=== PATIENT | female | born 1960 | race Caucasian/White ===

== ENCOUNTER 2024-04-08 18:18 | Inpatient (IN) | payer MEDICARE, MEDICAID ==
[~2024-04-08] VITALS: Ht 165.1 cm; Wt 57.1 kg
[~2024-04-08 18:18] MED LIST: BUPR-344 PO; BUSP5TAB20 PO; DIVA-111 PO
[2024-04-08 20:29] LABS: COVID AG,FIA SOURCE NASAL SWAB
[2024-04-08 20:56] LABS: BASOPHILS % (AUTO) 0.5 % (0.0-2.0); EOSINOPHILS % (AUTO) 0 % (1.0-6.0); HEMATOCRIT 47.1 % (36-46); HEMOGLOBIN 15.8 g/dL (12.0-16.0); LYMPHOCYTES # (AUTO) 1.8 K/uL (1.0-4.8); LYMPHOCYTES % (AUTO) 14.4 % (22.0-44.0); MEAN CORPUSCULAR HGB CONC 33.5 G/dL (31.0-37.0); MEAN CORPUSCULAR VOLUME 96 fL (80-100); MONOCYTES # (AUTO) 1.5 K/uL (0.1-1.0); MONOCYTES % (AUTO) 11.9 % (2.0-9.0); NEUTROPHILS # (AUTO) 9.1 K/uL (1.8-7.7); NEUTROPHILS % (AUTO) 73.2 % (40.0-70.0); PLATELET COUNT (AUTO) 310 K/uL (150-450); RED BLOOD CELL COUNT(AUTO) 4.92 MIL/uL (4.00-5.20); RED CELL DISTRIBUTION WIDTH 13.8 % (11.5-14.5); WHITE BLOOD COUNT (AUTO) 12.5 K/uL (4.5-11.0)
[2024-04-08 21:07] LABS: ANION GAP 14 mmol/L (8-16); CALCIUM, TOTAL 9.9 mg/dL (8.8-10.5); CARBON DIOXIDE 26 mmol/L (22-29); CHLORIDE 95 mmol/L (98-107); CREATININE 1.57 mg/dL (0.60-1.30); GLOMERULAR FILTR. RATE CALC 33 mL/min (>60); GLUCOSE,RANDOM 102 mg/dL (70-110); POTASSIUM 3.7 mmol/L (3.5-5.1); SODIUM SERUM 135 mmol/L (136-145); UREA NITROGEN, BLOOD 24 mg/dL (7-18)
[2024-04-08 21:09] LABS: ALCOHOL, BLOOD (SERUM) < 3 mg/dL (0-10)
[2024-04-08 21:14] LABS: SARS-COV2 (COVID) ANTIGEN,FIA Negative (Negative)
[2024-04-08 21:48] LABS: APPEARANCE,URINE TURBID (CLEAR); BILIRUBIN,URINE NEGATIVE (NEGATIVE); COLOR,URINE YELLOW (YELLOW); GLUCOSE, URINE (UA) TRACE mg/dL (NEGATIVE); LEUKOCYTE ESTERASE ,URINE SMALL (NEGATIVE); NITRATE,URINE NEGATIVE (NEGATIVE); OCCULT BLOOD,URINE TRACE (NEGATIVE); PROTEIN,URINE 100-200,SEE CONFIRM mg/dL (NEGATIVE); SPECIFIC GRAVITIY, URINE 1.022 (1.003-1.030)
[2024-04-08 21:54] LABS: ALCOHOL, URINE DRUG SCREEN NEGATIVE (NEGATIVE); AMPHET/METH SCREEN,URINE POSITIVE (NEGATIVE); BARBITURATE SCREEN, URINE NEGATIVE (NEGATIVE); BENZODIAZEPINES SCREEN,URINE NEGATIVE (NEGATIVE); CANNABINOID SCREEN,URINE POSITIVE (NEGATIVE); COCAINE SCREEN,URINE NEGATIVE (NEGATIVE); METHADONE SCREEN, URINE NEGATIVE (NEGATIVE); OPIATE SCREEN,URINE NEGATIVE (NEGATIVE); PHENCYCLIDINE SCREEN,URINE NEGATIVE (NEGATIVE)
[2024-04-08 22:36] LABS: RBC,URINE 0-2 /HPF (0-2)
[2024-04-08 22:37] LABS: BACTERIA,URINE Moderate /HPF (None Seen); SQUAMOUS EPITHELIAL CELL,UR Moderate /LPF (None Seen); SULFOSALICYLIC ACID,URINE Trace (Negative)
[2024-04-09] MEDS: LORazepam 1 MG TABLET PO ONE (01:05)
[2024-04-09] MEDS ORDERED: ZOLPIDEM TARTRATE 10 MG TABLET PO PRN (03:15)
[2024-04-09] MEDS ORDERED: HALOPERIDOL 5 MG TABLET PO PRN (03:15)
[2024-04-09 03:40] VITALS: BP 130/70; PULSE 105; RESP 18; TEMP 97.5; O2SAT 100
[2024-04-09] MEDS ORDERED: CloNIDine HCL 0.1 MG TABLET PO PRN (09:15)
[2024-04-09] MEDS ORDERED: LOPERAMIDE HCL 2 MG CAPSULE PO PRN ×2 (09:15→10:45)
[2024-04-09] MEDS ORDERED: DOCUSATE SODIUM 100 MG CAPSULE PO PRN (09:15)
[2024-04-09] MEDS ORDERED: MAGNESIUM HYDROXIDE SUSPENSION 30 ML UDCUP PO PRN ×2 (09:15→10:45)
[2024-04-09] MEDS ORDERED: ACETAMINOPHEN 325 MG TABLET PO PRN ×2 (09:15→10:45)
[2024-04-09] MEDS ORDERED: PETROLATUM,WHITE 28 GM JELLY TP PRN (09:15)
[2024-04-09] MEDS ORDERED: MAG HYDROX/ALUMINUM HYD/SIMETH ES 30 ML SUSPENSION UDCUP PO PRN ×2 (09:15→10:45)
[2024-04-09] MEDS ORDERED: ALBUTEROL SULFATE HFA 90 MCG/PUFF 8 GM INHALER IH PRN (09:15)
[2024-04-09] MEDS ORDERED: GuaiFENesin/D-METHORPHAN [SUGAR-FREE] 200-20MG/10 ML SYRUP UDCUP PO PRN ×2 (09:15→10:45)
[2024-04-09] MEDS ORDERED: ONDANSETRON 4 MG TABLET PO PRN (09:15)
[2024-04-09] MEDS ORDERED: NICOTINE 14 MG/24 HOUR PATCH TD PRN (09:15)
[2024-04-09] MEDS ORDERED: IBUPROFEN 400 MG TABLET PO PRN (09:15)
[2024-04-09 09:39] VITALS: BP 150/90; PULSE 71; RESP 18; TEMP 97; O2SAT 99
[2024-04-09 09:40] VITALS: BP 150/90; PULSE 71; RESP 18; TEMP 97; O2SAT 99
[2024-04-09] MEDS ORDERED: PROMETHAZINE HCL 25 MG TABLET PO PRN (10:45)
[2024-04-09] MEDS ORDERED: HydrOXYzine PAMOATE 50 MG CAPSULE PO PRN (10:45)
[2024-04-09] MEDS ORDERED: TUBERCULIN, PURIFIED PROTEIN DERIVATIVE 5 TU/0.1 ML SYRINGE ID ONE (10:45)
[2024-04-09] MEDS: CEPHALEXIN MONOHYDRATE 500 MG CAPSULE PO SCH (12:49)
[2024-04-09] MEDS: LORazepam 1 MG TABLET PO PRN (12:55)
[2024-04-09] MEDS: THIAMINE 100 MG TABLET PO SCH (16:16)
[2024-04-09] MEDS: BusPIRone HCL 5 MG TABLET PO SCH (16:16)
[2024-04-09] MEDS: DIVALPROEX SODIUM 500 MG ER TABLET PO SCH (20:54)
[2024-04-09] MEDS: MELATONIN 5 MG TABLET PO SCH (20:54)
[2024-04-09 21:33] VITALS: RESP 18; TEMP 97.6
[2024-04-10 07:37] LABS: CHOL/HDL RATIO 1.6 (3.9-5.7); FREE T4 (FREE THYROXINE) 1.22 ng/dL (0.76-1.46)
[2024-04-10 07:42] LABS: HEMOGLOBIN A1C 5.3 % (3.8-5.6)
[2024-04-10] MEDS: NALTREXONE HCL 50 MG TABLET PO SCH (09:50)
[2024-04-10] MEDS: BuPROPion HCL XL 150 MG ER TABLET PO SCH (09:50)
[2024-04-10] MEDS: FOLIC ACID 1 MG TABLET PO SCH (09:50)
[2024-04-10] MEDS: MULTIVITAMINS WITH MINERALS, THERAPEUTIC TABLET PO SCH (09:50)
[2024-04-10 10:50] VITALS: BP 154/89; PULSE 92; RESP 18; TEMP 97.6; O2SAT 96
[2024-04-10] MEDS ORDERED: OLANZapine 5 MG TABLET PO PRN (18:45)
[2024-04-10] MEDS ORDERED: KETOCONAZOLE 2% 120 ML SHAMPOO TP ONE (18:45)
[2024-04-10 20:30] VITALS: BP 139/68; PULSE 81; RESP 18; TEMP 98.3; O2SAT 95
[2024-04-10] MEDS: OLANZapine 10 MG TABLET PO SCH (20:31)
[2024-04-11 09:27] VITALS: BP 150/76; PULSE 60; RESP 18; TEMP 96.9; O2SAT 99
[2024-04-11] MEDS: BusPIRone HCL 10 MG TABLET PO SCH (10:06)
[2024-04-11] MEDS ORDERED: TRAZ-283 PO (13:53)
[2024-04-11] MEDS ORDERED: NALT50TA33 PO (13:53)
[2024-04-11] MEDS ORDERED: BUSP15 PO (13:53)
[2024-04-11] MEDS ORDERED: DIVA-153 PO (13:53)
[2024-04-11] MEDS ORDERED: OLAN10TA74 PO (13:53)
[2024-04-11] MEDS ORDERED: MELA5TAB40 PO (13:53)
[2024-04-11] MEDS ORDERED: DULO-114 PO (13:53)
[2024-04-11] MEDS: BusPIRone HCL 15 MG TABLET PO SCH (20:44)
[2024-04-11] MEDS: TraZODone HCL 150 MG TABLET PO SCH (20:44)
[2024-04-11 21:46] VITALS: BP 130/72; PULSE 69; RESP 18; TEMP 97.5; O2SAT 98
[2024-04-12] MEDS ORDERED: CEPH-558 PO (08:54)
[2024-04-12] MEDS: DULoxetine HCL 30 MG CAPSULE PO SCH (09:36)
[2024-04-12 10:04] VITALS: BP 167/67; PULSE 62; RESP 18; TEMP 98; O2SAT 98
== END 2024-04-12 13:39 | disposition home or self-care (01) | DRG 885 ==
LOC: EMS 18:22 → EDH 04-09 02:17 → UNDOADMIN 04-09 02:17 → 3EI 04-09 02:57 → 3EX 04-09 22:18
PROVIDERS: ADMIT Psychiatry & Neurology Psychiatry; ATTEND Psychiatry & Neurology Psychiatry
PROC: GZHZZZZ Group Psychotherapy (ICD-10-PCS; principal; 2024-04-09)
PROC: GZ51ZZZ Individual Psychotherapy, Behavioral (ICD-10-PCS; 2024-04-09)
DX: F31.5 Bipolar disorder, current episode depressed, severe, with psychotic features (principal); G93.41 Metabolic encephalopathy; F17.200 Nicotine dependence, unspecified, uncomplicated; J44.9 Chronic obstructive pulmonary disease, unspecified; Z20.822 Contact with and (suspected) exposure to COVID-19; F15.10 Other stimulant abuse, uncomplicated; F41.9 Anxiety disorder, unspecified; I10 Essential (primary) hypertension; K21.9 Gastro-esophageal reflux disease without esophagitis; F10.90 Alcohol use, unspecified, uncomplicated
CPT/HCPCS: 80048; 80061; 80164; 80307; 81001; 81002; 83036; 84439; 84443; 85025; 86592; 87086; 99285; G0378; G0480